=== PATIENT | male | born 1960 | race African-American/Black ===

== ENCOUNTER 2019-05-08 17:32 | Emergency (ER) | payer BC ==
[~2019-05-08] VITALS: Ht 167.6 cm; Wt 124.7 kg
[2019-05-08 17:53] VITALS: BP 122/64
[2019-05-08] MEDS ORDERED: BACITRACIN ZINC 0.9GM TP ONE (18:00)
--- NOTE | 2019-05-08 18:02 | NUR ---
bacitracin applied to wound and wrapped with gauze; pt instructed on keeping hand clean and wrapped and how to clean wound with mild soap and water and instructed to have stitches removed in 7 days; pt acknowledges understanding
== END 2019-05-08 18:13 | disposition home or self-care (01) ==
LOC: ER 17:32
DX: S61.411A Laceration without foreign body of right hand, initial encounter (principal); W26.8XXA Contact with other sharp object(s), not elsewhere classified, initial encounter; Y92.008 Other place in unspecified non-institutional (private) residence as the place of occurrence of the external cause; E78.5 Hyperlipidemia, unspecified
CPT/HCPCS: 99283